=== PATIENT | female | born 1945 | race Caucasian/White ===

== ENCOUNTER → 2016-09-24 | Outpatient (CLI) | payer OTHER ==
[~2016-09-24] VITALS: Ht 156.2 cm; Wt 106.6 kg
[~2016-09-24] MED LIST: CALC-393 PO; CHOL200010 PO; CRS/10 PO; CYAN100020 PO; LEVO100T PO; LIRA18IN SC; LORA-741 PO; LOSA50TA6 PO; MISCCAP80 PO; NRN/600 PO; NVLGI7030 SC; OMEP40CA41 PO; OXYC1TAB3 PO; PARO20TA3 PO; PROM12.57 PO; RANI300T PO; TRIATAB3 PO; UNABLE
[2016-09-24 13:06] VITALS: BP 145/54; PULSE 80; Ht 156.2 cm; Wt 106.6 kg
== END | disposition home or self-care (01) ==
LOC: C.NEUR 12:30
PROVIDERS: ATTEND Internal Medicine Pulmonary Disease
DX: G47.33 Obstructive sleep apnea (adult) (pediatric) (principal); E03.9 Hypothyroidism, unspecified; E66.9 Obesity, unspecified

== ENCOUNTER → 2017-04-16 | Day surgery (SDC) | payer OTHER ==
[2017-04-13 09:54] VITALS: Ht 158.8 cm; Wt 110.9 kg
[~2017-04-16] VITALS: Ht 158.8 cm; Wt 110.9 kg
[~2017-04-16] MED LIST changes: +LIDOCAINE HCL 2% 2 ML VIAL (20MG/ML) ONE; +MIDAZOLAM HCL 1 MG/ML 2ML VIAL ONE; -OXYC1TAB3 PO; -PROM12.57 PO; +PROPOFOL IV EMULSION 10 MG/ML 20 ML VIAL IV ONE; +SODIUM CHLORIDE 0.9% 500ML 500 ML IV ONE; -UNABLE
[2017-04-16 09:30] VITALS: TEMP 36.7
--- NOTE | 2017-04-16 09:51 | Endo History and Physical ---
History & Physical Date of Service: Apr 16, 2017. Chief Complaint: screening Referring Physician: Giacomo Manning PA-C History of Present Illness screening Past Surgical History Hx Cardiac Surgery: No Hx Internal Defibrillator: No Hx Pacemaker: Yes (PART OF PANCREAS REMOVED/REVISION, BOWEL OBSTRUCTION REPAIR (2 OR 3 SX'S)) Hx Abdominal Surgery: No Hx of Implantable Prosthesis: No Hx Post-Op Nausea and Vomiting: No Hx Cancer Surgery: No Hx Thoracic Surgery: No Hx Orthopedic: No Hx Urinary Tract Surgery: No Family History Polyp Social History Smoking Status: Never Smoker Hx Substance Use: No Hx Alcohol Use: No Allergies Coded Allergies: Penicillins (Verified Allergy, Unknown, RASH, FACIAL REDNESS AND SWELLING , 04/13/17) Current Medications Reported Home Medications Medications Dose Route/Sig Max Daily Dose Days Date Category Calcium (Calcium Carbonate) 600 Mg Tab 1 Tab PO BID 04/13/17 Reported Zantac (Ranitidine Hcl) 300 Mg Tab 300 Mg PO HS 04/13/17 Reported Crestor (Rosuvastatin Calcium) 10 Mg Tab 10 Mg PO HS 04/13/17 Reported Neurontin (Gabapentin) 600 Mg Tab 600 Mg PO BID 04/13/17 Reported Probiotic (Probiotic Product) 1 Cap Cap 1 Cap PO QAM 04/13/17 Reported Vitamin B12 (Cyanocobalamin) 1,000 Mcg Tab 1 Tab PO QAM 04/13/17 Reported Triamterene/Hctz 37.5-25MG (Triamterene/HCTZ) 1 Tab Tab 1 Tab PO QAM PRN 04/13/17 Reported Prilosec (Omeprazole) 40 Mg Cap 40 Mg PO QAM 04/13/17 Reported Paroxetine (Paroxetine HCl) 20 Mg Tab 1 Tab PO QAM 04/13/17 Reported Cozaar (Losartan Potassium) 50 Mg Tab 50 Mg PO QAM 04/13/17 Reported Vitamin D (Cholecalciferol) 2,000 Unit Cap 1 Cap PO QAM 04/13/17 Reported Synthroid (Levothyroxine Sodium) 100 Mcg Tab 100 Mcg PO QAM 04/13/17 Reported Novolog Mix 70/30 (Insulin Aspart Prota 70%/Aspart 30%) Susp 60 Units SC QAM 04/13/17 Reported Novolog Mix 70/30 (Insulin Aspart Prota 70%/Aspart 30%) Susp 70 Units SC QPM 04/13/17 Reported Victoza (Liraglutide) 18 Mg/3 Ml Inj 12 Units SC PRN 04/13/17 Reported Vital Signs Weight (Kilograms): 110.91 Height (Feet): 5 Height (Inches): 2.5 Date Time Temp Pulse Resp B/P (MAP) Pulse Ox O2 Delivery O2 Flow Rate FiO2 04/16/17 09:30 36.7 81 24 176/59 (98) 94 Room Air Physical Exam General Appearance: no apparent distress Respiratory/Chest: Auscultation: breath sounds normal Cardiovascular: Heart Auscultation: RRR Abdomen: Inspection & Palpation: soft Assessment and Plan Screening - cscopy
--- NOTE | 2017-04-16 10:39 | GI REPORT ---
Procedure Date: 04/16/2017 9:49 AM Procedure: Colonoscopy Indications: Screening for colorectal malignant neoplasm Medicines: See the Anesthesia note for documentation of the administered medications Complications: No immediate complications. Estimated Blood Loss: Estimated blood loss: none. Procedure: Pre-Anesthesia Assessment: - ASA Grade Assessment: III - A patient with severe systemic disease. After I obtained informed consent, the scope was passed under direct vision. Throughout the procedure, the patient's blood pressure, pulse, and oxygen saturations were monitored continuously. The scope was introduced through the anus and advanced to the cecum, identified by appendiceal orifice and ileocecal valve. The colonoscopy was somewhat difficult due to the patient's body habitus. The patient tolerated the procedure well. The quality of the bowel preparation was good. Findings: The perianal and digital rectal examinations were normal. Multiple small and large-mouthed diverticula were found in the entire colon. Lipoma in ascending colon. The exam was otherwise without abnormality. Impression: - Diverticulosis in the entire examined colon. - Lipoma. Recommendation: - Discharge patient to home. Given age, would not repeat CRC screening. Suzette Stratton M.D. Suzette Stratton MD 04/16/2017 10:38:32 AM This report has been signed electronically. Note Initiated On: 04/16/2017 9:49 AM I attest to the content of the Intraoperative Record and orders documented therein, exceptions below
--- NOTE | 2017-04-16 10:40 | Discharge Instructions ---
Endoscopy Patient Instructions Date / Procedure(s) Performed Apr 16, 2017. Colonoscopy Allergy Information Coded Allergies: Penicillins (Verified Allergy, Unknown, RASH, FACIAL REDNESS AND SWELLING , 04/13/17) Discharge Date / Findings Apr 16, 2017. Diverticulosis Medication Instructions Stopped Medication(s): stopped all meds on .except Levothyroxine and Victoza Provider Instructions Activity Restrictions - No exercising or heavy lifting for 24 hours. - Do not drink alcohol the day of the procedure. - Do not drive a car or operate machinery until the day after the procedure. - Do not make any important decisions or sign important papers in 24 hours after the procedure. Following Day: - Return to full activity which may include returning to work/school. Diet Start your diet with liquids and light foods (jello, soup, juice, toast). Then eat your usual diet if not nauseated. Treatment For Common After Affects For mild abdominal pain, bloating, or excessive gas: - Rest - Eat lightly - Lie on right side Follow-Up Information Follow-up with Giacomo Manning PA-C as scheduled Anesthesia Information What You Should Know You have had a procedure that required some medicine to reduce anxiety and discomfort. This treatment is called moderate sedation. After receiving the treatment, you may be sleepy, but you will be able to breathe on your own. The effects of the treatment may last for several hours. Follow these instructions along with Activity/Diet recommendations noted above: * Do NOT do anything where dizziness or clumsiness would be dangerous. * Rest quietly at home today, then you can be up and about tomorrow. * Have a responsible person stay with you the rest of today. * You may have had an I.V. today. If so, you may take the dressing off later today. Recommendations Call your doctor if: * Trouble breathing * Continuous vomiting for more than 24 hours * Temperature above 101 degrees * Severe abdominal pain or bloating * Pain not relieved by pain medicine ordered * There is increased drainage or redness from any incision * A large amount of rectal bleeding greater than 2-3 tablespoons. (If you had a polyp/s removed or have hemorrhoids, a small amount of blood - from the rectum is to be expected.) * You have any unanswered questions or concerns. IN THE EVENT OF A SERIOUS EMERGENCY, GO TO THE NEAREST EMERGENCY ROOM Your discharge instructions were prepared by provider Suzette Victor. Patient Instructions Signature Page Migdalia Wright Patient (or Guardian) Signature/Date: I have read and understand the instructions given to me by my caregivers. Caregiver/RN/Doctor Signature/Date: The above-named patient and/or guardian has received patient instructions on this date. + Original Patient Signature Page (only) stays with chart. Please make copy for patient.
--- NOTE | 2017-04-16 10:52 | Anesthesiology Progress Note ---
Anesthesia Post Op Note Date & Time Apr 16, 2017 at 10:52 Vital Signs Pain Intensity: 0 Vital Signs Past 12 Hours Date Time Temp Pulse Resp B/P (MAP) Pulse Ox O2 Delivery O2 Flow Rate FiO2 04/16/17 09:30 36.7 81 24 176/59 (98) 94 Room Air Notes Mental Status: alert / awake / arousable, participated in evaluation Pt Amnestic to Procedure: Yes Nausea / Vomiting: adequately controlled Pain: adequately controlled Airway Patency, RR, SpO2: stable & adequate BP & HR: stable & adequate Hydration State: stable & adequate Anesthetic Complications: no major complications apparent
[2017-04-16 11:13] VITALS: BP 110/72; PULSE 73; O2SAT 94
== END | disposition home or self-care (01) ==
LOC: C.GI 08:57
PROVIDERS: ATTEND Internal Medicine Gastroenterology
DX: Z12.11 Encounter for screening for malignant neoplasm of colon (principal); K57.30 Diverticulosis of large intestine without perforation or abscess without bleeding; D17.5 Benign lipomatous neoplasm of intra-abdominal organs

== ENCOUNTER → 2017-04-20 | Outpatient (CLI) | payer OTHER ==
[~2017-04-20] VITALS: Ht 158.8 cm; Wt 110.7 kg
[~2017-04-20] MED LIST changes: -LIDOCAINE HCL 2% 2 ML VIAL (20MG/ML) ONE; -MIDAZOLAM HCL 1 MG/ML 2ML VIAL ONE; -PROPOFOL IV EMULSION 10 MG/ML 20 ML VIAL IV ONE; -SODIUM CHLORIDE 0.9% 500ML 500 ML IV ONE
[2017-04-20 12:54] VITALS: BP 158/76; PULSE 91; Ht 158.8 cm; Wt 110.7 kg
== END | disposition home or self-care (01) ==
LOC: C.NEUR 12:20
PROVIDERS: ATTEND Internal Medicine Pulmonary Disease
DX: G47.33 Obstructive sleep apnea (adult) (pediatric) (principal); E66.9 Obesity, unspecified; G47.34 Idiopathic sleep related nonobstructive alveolar hypoventilation; I10 Essential (primary) hypertension

== ENCOUNTER → 2018-01-10 | Outpatient (CLI) | payer OTHER ==
--- NOTE | 2018-01-10 15:01 | DIAGNOSTIC IMAGING REPORT ---
HEAD CT NONCONTRAST CT DOSE: HISTORY: DYSPHAGIA TECHNIQUE: Multiaxial CT images of the head were performed without the use of intravenous contrast. Automated exposure control was utilized for this study. A dose lowering technique was utilized adhering to the principles of ALARA. Comparison: Head CT 07/13/2010. Findings: The paranasal sinuses and mastoid air cells are clear. The calvarium and skull base are intact. The ventricles and sulci are within normal limits. There is no mass, hematoma, midline shift, or acute infarct. Impression: No acute intracranial abnormality. Electronically signed by: Frank Franklin M.D. 01/10/2018 2:59 PM Dictated Date/Time: 01/10/2018 2:52 PM
--- NOTE | 2018-01-10 16:06 | DIAGNOSTIC IMAGING REPORT ---
CT OF THE NECK WITHOUT CONTRAST CLINICAL HISTORY: Dysphagia. COMPARISON STUDY: No previous studies for comparison. TECHNIQUE: Axial images of the neck were obtained without IV contrast. FINDINGS: Visualized portions of the intracranial contents are unremarkable on this unenhanced exam. Note is made of bilateral proptosis. Evaluation of the neck is suboptimal on this unenhanced exam. No mucosal lesion is identified although sensitivity is diminished on this unenhanced CT. The epiglottis is normal. There is an apparent 1.5 x 0.9 cm soft tissue nodule at the left carotid bifurcation. The parotid and submandibular glands are unremarkable. Lung apices are clear. No suspicious osseous lesions are present. There is no fluid collection is suggest abscess within neck. IMPRESSION: 1. Apparent 1.5 x 0.9 cm soft tissue nodule at the left carotid bifurcation. This is suboptimally assessed on this unenhanced exam. A follow-up contrast-enhanced CT of the neck could be obtained for further evaluation. 2. No mucosal lesion identified although sensitivity diminished on this unenhanced CT. 3. Bilateral proptosis. Electronically signed by: Luis Fernando Hoffman M.D. 01/10/2018 4:04 PM Dictated Date/Time: 01/10/2018 3:01 PM
== END | disposition home or self-care (01) ==
LOC: C.CTS 14:24
PROVIDERS: ATTEND Physician Assistant
DX: R13.10 Dysphagia, unspecified (principal)

== ENCOUNTER → 2018-04-19 | Outpatient (CLI) | payer OTHER ==
[~2018-04-19] VITALS: Ht 157.5 cm; Wt 109.2 kg
[2018-04-19 12:21] VITALS: BP 165/72; PULSE 97; Ht 157.5 cm; Wt 109.2 kg
== END | disposition home or self-care (01) ==
LOC: C.NEUR 11:45
PROVIDERS: ATTEND Internal Medicine Pulmonary Disease
DX: G47.33 Obstructive sleep apnea (adult) (pediatric) (principal); G47.34 Idiopathic sleep related nonobstructive alveolar hypoventilation; E66.9 Obesity, unspecified; E11.9 Type 2 diabetes mellitus without complications